=== PATIENT | female | born 1950 | race Caucasian/White ===

== ENCOUNTER 2024-01-19 11:46 | Inpatient (IN) | payer MEDICARE ==
[2024-01-19] MEDS ORDERED: Iopamidol-370 76% 500 ML MDV (1 ML CHARGE) ONE (12:30)
[2024-01-19 12:54] LABS: #Basophils Less than 0.03 10x3/uL (0.0-0.2); #Eosinphils Less than 0.03 10x3/uL (0.0-0.7); %Basophils 0.2 % (0.0-1.0); %Eosinophils 0.2 % (0.0-10.0); %Lymphocytes 10.1 % (21.0-51.0); %Monocytes 6.1 % (0.0-10.0); %Neutrophils 82.7 % (42.0-75.0); Hematocrit 41.5 % (36.0-47.0); Hemoglobin 13.6 g/dL (12.0-16.0); Mean Corpuscular HGB CONC 32.8 g/dL (32.0-36.0); Mean Corpuscular Hemoglobin 29.7 pg (27.0-31.0); Mean Corpuscular Volume 90.6 fL (78.0-98.0); Mean Platelet Volume 8.8 fL (7.4-10.4); Platelet Count 304 10x3/uL (130-400); RBC Distribution Width 22.7 % (11.5-14.5); Red Blood Cell (RBC) Count 4.58 mill/uL (4.20-5.40)
[2024-01-19 13:10] LABS: ALT (SGPT) 71 U/L (8-55); AST (SGOT) 91 U/L (5-34); Albumin 2.3 g/dL (3.4-4.8); Alkaline Phosphatase 99 U/L (40-110); Anion Gap 12 mmol/L (10-20); BUN (Urea Nitrogen) 12 mg/dL (9.8-20.1); Bilirubin, Total 1.1 mg/dL (0.2-1.2); Calc. Creatinine Clearance 0 mL/min (70-130); Calcium 8.9 mg/dL (7.8-10.44); Carbon Dioxide 20 mmol/L (23-31); Chloride 103 mmol/L (98-107); Estimated GFR 93; Globulin 3.4 g/dL (2.4-3.5); Glucose 237 mg/dL (83-110); Potassium 4.3 mmol/L (3.5-5.1); Protein, Total 5.7 g/dL (5.8-8.1); Sodium 131 mmol/L (136-145)
[2024-01-19 13:15] LABS: Troponin I Less than 0.010 ng/mL (< 0.028)
[2024-01-19] MEDS ORDERED: Enoxaparin 100 MG (1 mL) SYRINGE ONE (15:38)
[2024-01-19] MEDS ORDERED: LevoFLOXacin 750 mg/D5W 150 ml Premix Bag ONE (15:38)
[2024-01-19] MEDS ORDERED: Senokot S 8.6-50 MG TAB PO PRN (15:46)
[2024-01-19 18:01] LABS: Lactic Acid 2.9 mmol/L (0.5-2.2)
[2024-01-19 18:10] LABS: Troponin I Less than 0.010 ng/mL (< 0.028)
[2024-01-19 18:31] VITALS: BMI 36.7
[2024-01-19] MEDS ORDERED: Vancomycin (BATCH) 2 GM in Premix 1 BAG IVPB SCH (19:00)
[2024-01-19] MEDS ORDERED: Dextrose 5% in Water 1,000 ML IV PRN (19:30)
[2024-01-19] MEDS ORDERED: Dextrose 50% Abboject 50 ML SYRINGE SLOW IVP PRN (19:30)
[2024-01-19] MEDS ORDERED: Glucagon 1 MG/ML KIT IM PRN (19:30)
[2024-01-19 20:04] LABS: Troponin I Less than 0.010 ng/mL (< 0.028)
[2024-01-19] MEDS ORDERED: Piperacillin/Tazobactam 4.5 GM in Sodium Chloride 0.9% 100 ML IVPB SCH (22:00)
[2024-01-19] MEDS: Ipratropium/Albuterol 3 ML NEB NEB PRN (22:16)
[2024-01-19] MEDS: Vancomycin (BATCH) 1.75 GM in Premix 1 BAG IVPB SCH (22:24)
[2024-01-19] MEDS: Cefepime 2 GM in Sodium Chloride 0.9% 100 ML IVPB SCH (22:24)
[2024-01-19] MEDS: Famotidine 20 MG TAB PO SCH (22:25)
[2024-01-19] MEDS ORDERED: Calcium Carbonate 500 MG ChewTAB PO PRN (22:45)
[2024-01-19] MEDS ORDERED: Docusate 100 MG CAP PO PRN (22:45)
[2024-01-19] MEDS: Acetaminophen 325 MG TAB PO PRN (23:08)
[2024-01-20 04:55] LABS: #Basophils Less than 0.03 10x3/uL (0.0-0.2); #Eosinphils Less than 0.03 10x3/uL (0.0-0.7); %Basophils 0.2 % (0.0-1.0); %Lymphocytes 15.1 % (21.0-51.0); %Monocytes 9.5 % (0.0-10.0); %Neutrophils 74.5 % (42.0-75.0); Hematocrit 34.7 % (36.0-47.0); Hemoglobin 11.6 g/dL (12.0-16.0); Mean Corpuscular HGB CONC 33.4 g/dL (32.0-36.0); Mean Corpuscular Volume 89.7 fL (78.0-98.0); Mean Platelet Volume 9.2 fL (7.4-10.4); Platelet Count 253 10x3/uL (130-400); RBC Distribution Width 22.8 % (11.5-14.5); Red Blood Cell (RBC) Count 3.87 mill/uL (4.20-5.40)
[2024-01-20 05:16] LABS: Vancomycin, Random 22.7 ug/mL (See Comment)
[2024-01-20 05:28] LABS: Lactic Acid 1.8 mmol/L (0.5-2.2)
[2024-01-20 05:30] LABS: ALT (SGPT) 53 U/L (8-55); AST (SGOT) 64 U/L (5-34); Alkaline Phosphatase 80 U/L (40-110); Anion Gap 10 mmol/L (10-20); BUN (Urea Nitrogen) 12 mg/dL (9.8-20.1); Bilirubin, Total 0.9 mg/dL (0.2-1.2); Calc. Creatinine Clearance 125 mL/min (70-130); Calcium 8.1 mg/dL (7.8-10.44); Carbon Dioxide 19 mmol/L (23-31); Chloride 105 mmol/L (98-107); Estimated GFR 98; Globulin 2.4 g/dL (2.4-3.5); Glucose 162 mg/dL (83-110); Potassium 4.1 mmol/L (3.5-5.1); Protein, Total 4.4 g/dL (5.8-8.1); Sodium 130 mmol/L (136-145)
[2024-01-20] MEDS: Enoxaparin 80 MG (0.8 mL) SYRINGE SC SCH (08:30)
[2024-01-20] MEDS: GUAIFENESIN SF SOLN 200 MG/10 ML UDCUP PO SCH (08:30)
[2024-01-20] MEDS: Gabapentin 300 MG CAP PO SCH (08:30)
[2024-01-20] MEDS: Vancomycin 1 GM in Premix 1 BAG IVPB SCH (08:30)
[2024-01-20] MEDS: Saccharomyces boulardii 250 MG CAP PO SCH (08:30)
[2024-01-20] MEDS: ALPRAZolam 0.25 MG TAB PO PRN (13:11)
[2024-01-20 20:28] VITALS: BP 114/75
[2024-01-20 22:41] LABS: #Basophils 0.03 10x3/uL (0.0-0.2); %Basophils 0.2 % (0.0-1.0); %Eosinophils 0.2 % (0.0-10.0); %Lymphocytes 28.9 % (21.0-51.0); %Monocytes 7.9 % (0.0-10.0); %Neutrophils 62.1 % (42.0-75.0); Hematocrit 40.8 % (36.0-47.0); Hemoglobin 13.7 g/dL (12.0-16.0); Mean Corpuscular HGB CONC 33.6 g/dL (32.0-36.0); Mean Corpuscular Volume 89.3 fL (78.0-98.0); Mean Platelet Volume 8.7 fL (7.4-10.4); Platelet Count 355 10x3/uL (130-400); RBC Distribution Width 23.4 % (11.5-14.5); Red Blood Cell (RBC) Count 4.57 mill/uL (4.20-5.40)
[2024-01-20 22:59] LABS: Lactic Acid 2.2 mmol/L (0.5-2.2)
[2024-01-20 23:07] LABS: ALT (SGPT) 62 U/L (8-55); AST (SGOT) 79 U/L (5-34); Albumin 2.3 g/dL (3.4-4.8); Alkaline Phosphatase 91 U/L (40-110); Anion Gap 13 mmol/L (10-20); BUN (Urea Nitrogen) 13 mg/dL (9.8-20.1); Calc. Creatinine Clearance 111 mL/min (70-130); Calcium 8.8 mg/dL (7.8-10.44); Carbon Dioxide 18 mmol/L (23-31); Chloride 103 mmol/L (98-107); Estimated GFR 95; Globulin 3.5 g/dL (2.4-3.5); Glucose 194 mg/dL (83-110); Magnesium 1.8 mg/dL (1.6-2.6); Potassium 4.3 mmol/L (3.5-5.1); Protein, Total 5.8 g/dL (5.8-8.1); Sodium 130 mmol/L (136-145)
[2024-01-20 23:08] LABS: Troponin I Less than 0.010 ng/mL (< 0.028)
[2024-01-20] MEDS: Morphine 4 MG/ML VIAL ONE (23:11)
[2024-01-20] MEDS: Atorvastatin Calcium 40 MG TAB PO SCH (23:12)
[2024-01-20] MEDS: Heparin 25,000 units/D5W 500 ML IVPB SCH (23:31)
[2024-01-20] MEDS: Heparin 10,000 UNITS/ 10 ML VIAL SLOW IVP SCH (23:32)
[2024-01-21] MEDS: Morphine 2 MG/ML VIAL SLOW IVP SCH (02:47)
[2024-01-21] MEDS: Insulin Lispro 100 UNIT/ML 10 ML VIAL SC PRN (05:38)
[2024-01-21 07:07] LABS: PTT 238.4 sec (22.9-36.1)
[2024-01-21] MEDS: Morphine 4 MG/ML VIAL SLOW IVP PRN (07:17)
[2024-01-21] MEDS: Lorazepam 2 MG/ML VIAL SLOW IVP PRN (12:36)
[2024-01-21 13:57] VITALS: BMI 36.5
[2024-01-21 16:19] VITALS: TEMP 96.8
== END 2024-01-21 18:11 | disposition hospice, home (50) | DRG 840 ==
LOC: ERS 11:46 → T4-A 14:46 → CCU 01-20 22:43
PROVIDERS: ADMIT Internal Medicine; ATTEND Internal Medicine
DX: C85.20 Mediastinal (thymic) large B-cell lymphoma, unspecified site (principal); I26.99 Other pulmonary embolism without acute cor pulmonale; J18.9 Pneumonia, unspecified organism; J96.01 Acute respiratory failure with hypoxia; E87.1 Hypo-osmolality and hyponatremia; E11.9 Type 2 diabetes mellitus without complications; E03.9 Hypothyroidism, unspecified; E78.5 Hyperlipidemia, unspecified; Z90.49 Acquired absence of other specified parts of digestive tract; Z51.5 Encounter for palliative care; Z66 Do not resuscitate; Z98.890 Other specified postprocedural states; Z74.01 Bed confinement status
CPT/HCPCS: 36415; 36416; 71045; 71275; 80053; 80202; 82565; 83605; 83615; 83735; 83880; 84484; 85025; 85730; 87040; 93005; 93010; 94640; 96365; 96366; 96372; J0692; J1644; J1650; J1815; J1956; J2060; J2270; J3370; J3370-JW; J3490; J7620; Q9967

== ENCOUNTER 2024-01-21 18:29 | Inpatient (IN) | payer OTHER ==
[2024-01-21] MEDS ORDERED: Bisacodyl 10 MG SUPP PR PRN (18:43)
[2024-01-21] MEDS ORDERED: Ondansetron PF 4 MG/2 ML Vial IVP PRN (18:45)
[2024-01-21] MEDS ORDERED: Lorazepam 2 MG/ML VIAL SLOW IVP PRN (18:45)
[2024-01-21] MEDS: Lorazepam 2 MG/ML VIAL SLOW IVP SCH (20:59)
[2024-01-21] MEDS: Morphine 2 MG/ML VIAL SLOW IVP SCH (20:59)
[2024-01-21 23:26] VITALS: BMI 37.3
[2024-01-22] MEDS: Morphine 2 MG/ML VIAL SLOW IVP PRN (02:46)
[2024-01-23] MEDS: Scopolamine 1 mg/72 hour Patch TOP PRN (01:15)
[2024-01-23] MEDS: Hyoscyamine SL 0.125 MG TAB SL PRN (02:15)
[2024-01-23 07:43] VITALS: BP 67/47; TEMP 97.5
[2024-01-23] MEDS: Lorazepam 1 MG TAB PO PRN (13:59)
[2024-01-23] MEDS: Morphine IR 10 MG/5 ML UDCUP PO PRN (14:00)
[2024-01-23] MEDS ORDERED: Morphine 10 MG/0.5 ML ORAL SYRINGE SL PRN (14:40)
[2024-01-23] MEDS: Lorazepam 1 MG TAB PO SCH (17:51)
[2024-01-23] MEDS: Morphine 10 MG/0.5 ML ORAL SYRINGE SL SCH (17:52)
[2024-01-23] MEDS ORDERED: Morphine IR 10 MG/5 ML UDCUP PO SCH (18:00)
== END 2024-01-23 23:20 | disposition expired | DRG 951 ==
LOC: CCU 18:29 → T4-A 22:00
PROVIDERS: ADMIT Family Medicine; ATTEND Family Medicine
DX: Z51.5 Encounter for palliative care (principal); I26.99 Other pulmonary embolism without acute cor pulmonale; J90 Pleural effusion, not elsewhere classified; J98.11 Atelectasis; E87.1 Hypo-osmolality and hyponatremia; E03.9 Hypothyroidism, unspecified; I10 Essential (primary) hypertension; E11.9 Type 2 diabetes mellitus without complications; E78.5 Hyperlipidemia, unspecified; Z90.49 Acquired absence of other specified parts of digestive tract; Z79.899 Other long term (current) drug therapy; Z79.890 Hormone replacement therapy
CPT/HCPCS: J2060; J2272